=== PATIENT | female | born 1950 | race Caucasian/White ===

== ENCOUNTER 2016-08-18 15:49 | Outpatient (CLI) | payer OTHER ==
--- NOTE | 2016-08-18 16:20 | Diagnostic Imaging Report ---
[facility] [address] [facility].[address] [address] Report Submission Date: Aug 18, 2016 4:17:59 PM CDT Patient Study Name: DEMIAN RDZ Date: Aug 18, 2016 3:54:53 PM CDT Modality Type: CR Gender: F Description: LOWER EXTREMITY : 52 Institution: [facility] Physician: CLAUDIO BHATT Right foot 3 views Clinical history pain Technique AP lateral oblique Findings: There is no fracture dislocation. Bone density is normal. Postoperative changes of the 1st metatarsal bunionectomy are present. Impression: No acute pathology Electronically signed on Aug 18, 2016 4:17:59 PM CDT by: Koby JADE
== END 2016-08-18 15:50 ==
LOC: RAD 15:49
PROVIDERS: ATTEND Physician Assistant
DX: M79.672 Pain in left foot (principal)
CPT/HCPCS: 73630

== ENCOUNTER 2016-11-17 08:58 | Outpatient (CLI) | payer OTHER | END 2016-11-17 09:00 | LOC: POD 08:58 | PROVIDERS: ATTEND Podiatrist Public Medicine | DX: M20.12 Hallux valgus (acquired), left foot (principal); M79.671 Pain in right foot | CPT/HCPCS: G0463 ==

== ENCOUNTER 2018-05-10 09:29 | Outpatient (CLI) | payer OTHER ==
--- NOTE | 2018-05-11 17:23 | Diagnostic Imaging Report ---
CASEY VARG[facility] [address] [address] Report Submission Date: May 11, 2018 10:50:23 AM TOLL LINE REPAIRER Patient Study Name: DEMIAN RDZ Date: May 10, 2018 12:00:00 AM TOLL LINE REPAIRER Modality Type: DEXA\OT Gender: F Description: DEXA : 52 Institution: [facility] Physician: CASEY VARGAS Examination: Bone density History: Assess bone mineralization Comparison exams: None available Technique: DEXA protocol Findings: Average bone mineral density from L1 through L4: 0.980 grams cm2. T score: -1.7 Bone mineral density of the left femoral neck: 0.687 grams cm2. T score: -2.5 Impression: Lumbar spine osteopenia. Left femoral neck osteoporosis. Electronically signed on May 11, 2018 10:50:23 AM TOLL LINE REPAIRER by: Bruce JADE
== END 2018-05-10 09:31 ==
LOC: RAD 09:29
PROVIDERS: ATTEND Family Medicine
DX: M85.88 Other specified disorders of bone density and structure, other site (principal)
CPT/HCPCS: 77080